=== PATIENT | female | born 1995 | race Caucasian/White ===

== ENCOUNTER 2024-04-17 13:25 | Emergency (ER) | payer OTHER ==
[~2024-04-17] VITALS: Ht 157.5 cm; Wt 47.6 kg
[2024-04-17] MEDS ORDERED: KYLE19.5 IU (13:32)
[2024-04-17 14:52] VITALS: BP 145/70; TEMP 98.8; O2SAT 99
== END 2024-04-17 15:03 | disposition home or self-care (01) ==
LOC: M ED 13:25
DX: S92.102A Unspecified fracture of left talus, initial encounter for closed fracture (principal); X50.0XXA Overexertion from strenuous movement or load, initial encounter; Y99.0 Civilian activity done for income or pay; Y92.199 Unspecified place in other specified residential institution as the place of occurrence of the external cause; Y93.F2 Activity, caregiving, lifting

== ENCOUNTER → 2024-04-22 | Outpatient (CLI) | payer OTHER ==
[~2024-04-22] MED LIST: KYLE19.5 IU
== END ==
LOC: M PLAIMG 09:00
PROVIDERS: ATTEND Physician Assistant
DX: S92.135A Nondisplaced fracture of posterior process of left talus, initial encounter for closed fracture (principal); M79.89 Other specified soft tissue disorders; X58.XXXA Exposure to other specified factors, initial encounter; Y92.9 Unspecified place or not applicable; Y93.9 Activity, unspecified; Y99.9 Unspecified external cause status

== ENCOUNTER → 2024-05-23 | Outpatient (CLI) | payer OTHER | LOC: M SOG 08:54 | PROVIDERS: ATTEND Physician Assistant | DX: Z04.2 Encounter for examination and observation following work accident (principal); S92.102D Unspecified fracture of left talus, subsequent encounter for fracture with routine healing; X58.XXXD Exposure to other specified factors, subsequent encounter; Y92.89 Other specified places as the place of occurrence of the external cause; Y93.89 Activity, other specified; Y99.8 Other external cause status ==

== ENCOUNTER → 2024-06-12 | Outpatient (CLI) | payer OTHER | LOC: M SOG 07:57 | PROVIDERS: ATTEND Physician Assistant | DX: S92.102D Unspecified fracture of left talus, subsequent encounter for fracture with routine healing (principal) ==

== ENCOUNTER → 2024-07-14 | Outpatient (CLI) | payer OTHER | LOC: M SOG 07:53 | PROVIDERS: ATTEND Physician Assistant | DX: S92.102D Unspecified fracture of left talus, subsequent encounter for fracture with routine healing (principal) ==

== ENCOUNTER → 2024-07-18 | Outpatient (CLI) | payer OTHER | LOC: M SOG 08:05 | PROVIDERS: ATTEND Physician Assistant | DX: S92.102D Unspecified fracture of left talus, subsequent encounter for fracture with routine healing (principal) ==